=== PATIENT | male | born 1965 | race Caucasian/White ===

== ENCOUNTER → 2024-05-13 14:51 | Outpatient (REF) | payer OTHER, SELFPAY | LOC: RCS 14:51 | PROVIDERS: ATTENDING PHYSICIAN Orthopaedic Surgery; FAMILY PHYSICIAN Family Medicine | DX: Z01.818 Encounter for other preprocedural examination (principal) | CPT/HCPCS: 93005 ==

== ENCOUNTER → 2024-05-20 16:31 | Outpatient (REF) | payer OTHER, SELFPAY | LOC: CLAB 16:31 | PROVIDERS: ATTENDING PHYSICIAN Orthopaedic Surgery | DX: R22.42 Localized swelling, mass and lump, left lower limb (principal) | CPT/HCPCS: 88304 ==